=== PATIENT | female | born 1950 | race Caucasian/White ===

== ENCOUNTER 2017-02-07 05:30 | Inpatient (IN) | payer BC, OTHER, MEDICARE ==
[2017-01-24 11:14] VITALS: BMI 45.0
--- NOTE | 2017-01-24 11:51 | PAT Medication Instructions ---
Service Date Jan 24, 2017. Current Home Medication List Acetaminophen (Tylenol Arthritis Ext Rel), 1,300 MG PO Q8H PRN for Pain Acetaminophen (Tylenol), 1,000 MG PO PRN Albuterol Sulfate (Proventil Hfa), 2 PUFFS INH Q4H PRN for Wheezing Amlodipine (Norvasc), 2.5 MG PO QAM Amoxicillin (Amoxil), 2,000 MG PO UD Aspirin (Aspirin), 1 TAB PO HS Calcium Carbonate (Tums), 500 MG PO PRN Cholecalciferol (Vitamin D), 1,000 INTER.UNIT PO QAM Diphenoxylate/Atropine (Lomotil 2.5-0.025 mg), 1 TAB PO TID Diphenoxylate/Atropine (Lomotil), 1 TAB PO PRN Fluticasone Prop/Salmeterol (Advair Diskus 250/50 60 Dose), 1 PUFF INH HS Fluticasone Propionate (Nasal) (Flonase Allergy Relief), 2 SPRAYS NA QAM Ibuprofen (Ibuprofen), 1 TABS PO Q4H PRN for Pain Ibuprofen (Advil), 400 MG PO PRN Krill Oil (Krill Oil Bingham-3), 1 TABS PO HS Loratadine (Claritin), 10 MG PO QAM Metformin Hcl Er (Glucophage Er), 1,000 MG PO BID Montelukast Sodium (Singulair), 10 MG PO QAM Multivitamin (Multivitamin), 1 TAB PO QAM Omeprazole (Prilosec), 20 MG PO QAM Ranitidine (Zantac), 150 MG PO HS Timolol Maleate (Ophth) (Timoptic), 1 DROPS OP BID Valacyclovir Hcl (Valtrex), 1 GM PO TID PRN for PRN Valsartan (Diovan), 80 MG PO HS Vitamins C & E (Vitamin C), 1 TAB PO QAM [Oxybutynin], 5 MG PO BID Medication Instructions For Your Scheduled Surgery Amoxicillin (Amoxil), 2,000 MG PO UD (prior to dental procedures due to history of knee replacement) - Check with surgeon for instructions: Aspirin (Aspirin) 81MG, 1 TAB PO HS Ibuprofen (Ibuprofen), 1 TABS PO Q4H PRN for Pain Ibuprofen (Advil), 400 MG PO PRN - Hold the following medications starting 01/24/17: Krill Oil (Krill Oil Bingham-3), 1 TABS PO HS - Hold the following medications 48 hours prior to surgery: Metformin Hcl Er (Glucophage Er), 1,000 MG PO BID - Hold the following medications the morning of surgery: [Oxybutynin], 5 MG PO BID Vitamins C (Vitamin C), 1 TAB PO QAM Montelukast Sodium (Singulair), 10 MG PO QAM Multivitamin (Multivitamin), 1 TAB PO QAM Loratadine (Claritin), 10 MG PO QAM Diphenoxylate/Atropine (Lomotil 2.5-0.025 mg), 1 TAB PO TID Diphenoxylate/Atropine (Lomotil), 1 TAB PO PRN Calcium Carbonate (Tums), 500 MG PO PRN Cholecalciferol (Vitamin D), 1,000 INTER.UNIT PO QAM - Take the following medications the morning of surgery with a sip of water: Valacyclovir Hcl (Valtrex), 1 GM PO TID PRN for PRN Timolol Maleate (Ophth) (Timoptic), 1 DROPS OP BID Omeprazole (Prilosec), 20 MG PO QAM Fluticasone Propionate (Nasal) (Flonase Allergy Relief), 2 SPRAYS NA QAM Acetaminophen (Tylenol Arthritis Ext Rel), 1,300 MG PO Q8H PRN for Pain Acetaminophen (Tylenol), 1,000 MG PO PRN Amlodipine (Norvasc), 2.5 MG PO QAM Albuterol Sulfate (Proventil Hfa), 2 PUFFS INH Q4H PRN for Wheezing - Hold the following medications as scheduled the night before surgery: Valsartan (Diovan), 80 MG PO HS - Take the following medications as scheduled the night before surgery: [Oxybutynin], 5 MG PO BID Valacyclovir Hcl (Valtrex), 1 GM PO TID PRN for PRN Timolol Maleate (Ophth) (Timoptic), 1 DROPS OP BID Ranitidine (Zantac), 150 MG PO HS Fluticasone Prop/Salmeterol (Advair Diskus 250/50 60 Dose), 1 PUFF INH HS Diphenoxylate/Atropine (Lomotil 2.5-0.025 mg), 1 TAB PO TID Diphenoxylate/Atropine (Lomotil), 1 TAB PO PRN Calcium Carbonate (Tums), 500 MG PO PRN Acetaminophen (Tylenol Arthritis Ext Rel), 1,300 MG PO Q8H PRN for Pain Acetaminophen (Tylenol), 1,000 MG PO PRN Albuterol Sulfate (Proventil Hfa), 2 PUFFS INH Q4H PRN for Wheezing If you have any questions please call us at [phone] (Marietta Flores PA-C) or [phone] or [phone]
--- NOTE | 2017-01-24 12:30 | DIAGNOSTIC IMAGING REPORT ---
CHEST PREADMISSION(PA/LAT) CLINICAL HISTORY: PAT preoperative evaluation COMPARISON STUDY: No previous studies for comparison. FINDINGS: The bones soft tissues and hemidiaphragms are normal. The cardiomediastinal silhouette is normal. The lungs are clear. The pulmonary vasculature is normal. IMPRESSION: Negative chest. Electronically signed by: Freddy Hannah M.D. 01/24/2017 12:29 PM Dictated Date/Time: 01/24/2017 12:27 PM
[2017-01-24 12:43] LABS: BASO ABS # 0.08 K/uL (0-0.2); COMPLETE YES; EOS % 3.9 %; HEMATOCRIT 39.8 % (37-47); IG% 0.1 %; LYMPH % 21.3 %; LYMPH ABS # 1.68 K/uL (1.2-3.4); MEAN CELL VOLUME 92.6 fL (80-100); MEAN CORPUSCULAR HEMOGLOBIN 30.2 pg (25-34); MEAN CORPUSCULAR HGB CONC 32.7 g/dl (32-36); MEAN PLATELET VOLUME 8.7 fL (7.4-10.4); MONO % 6.4 %; NEUT % 67.3 %; PLATELET COUNT 272 K/uL (130-400); WHITE BLOOD COUNT 7.87 K/uL (4.8-10.8)
[2017-01-24 12:48] LABS: URINE APPEARANCE CLEAR (CLEAR); URINE BILIRUBIN NEG (NEG); URINE COLOR YELLOW; URINE EPITHELIAL CELL AUTO >30 /lpf (0-5); URINE NITRITE NEG (NEG); URINE SPECIFIC GRAVITY 1.021 (1.000-1.030); UROBILINOGEN NEG (NEG)
[2017-01-24 12:56] LABS: MANUAL MICROSCOPIC REQUIRED? NO; REVIEW REQ? NO
[2017-01-24 12:59] LABS: BUN/CREATININE RATIO 15.9 (10-20); CREATININE 0.88 mg/dl (0.60-1.20); POTASSIUM 4.3 mmol/L (3.5-5.1)
--- NOTE | 2017-02-03 09:16 | HISTORY & PHYSICAL EXAMINATION ---
DATE OF ADMISSION: 02/07/2017 HISTORY OF PRESENT ILLNESS: The patient presents to our office with a complaint of chronic back pain progressively worsening over the past 6 months. It also radiates down the right buttock, lateral thigh, and posterior calf to her ankle. Left leg is asymptomatic. Standing and walking reproduces her pain. Sitting and taking Tylenol alleviate it. Denies bowel or bladder dysfunction. PAST MEDICAL HISTORY: The patient's medical history is significant for asthma, arthritis, GERD, diabetes, hiatal hernia, hypertension, obesity. PAST SURGICAL HISTORY: Significant for exploratory lap, x3, D\T\C. MEDICATIONS: None listed. ALLERGIES: No known drug allergies. SOCIAL HISTORY: She is retired. She is . Denies alcohol. Denies tobacco. Denies drug use. FAMILY HISTORY: Significant for arthritis, diabetes and hypertension. REVIEW OF SYSTEMS: Significant for coughing, nasal congestion, difficulty walking, frequent urination, urge urinary incontinence, asthma, chills, fatigue. PHYSICAL EXAMINATION: VITAL SIGNS: 5 feet tall, 192 pounds. HEENT: Speech appropriate. CARDIOPULMONARY: No gross abnormalities. ABDOMEN: Soft, nontender. GENITOURINARY: Deferred. NEUROLOGIC: Cranial nerves II through XII grossly intact. MUSCULOSKELETAL: She ambulates with a very short stepped shuffled gait. She has difficulty toe and heel walking without assistance. Absent ankle clonus. Strength is intact to bilateral lower extremities. Negative tension signs. ASSESSMENT: Lumbar radiculopathy. Possible facet cyst on the right of L4-L5, spondylolisthesis L3-L4, L4-L5. PLAN: At this point in time, we have reviewed surgical intervention which would require lumbar decompression with instrumented fusion L3-L4, L4-L5. Risks, benefits, pros, cons, explained in detail. She would like to proceed with above-mentioned surgical planning.
[~2017-02-07] VITALS: Ht 152.4 cm; Wt 104.6 kg
[2017-02-07] VITALS (9 sets, daily range): BP systolic 131–164; BP diastolic 77–96; PULSE 65–84; TEMP 36.4–36.8; O2SAT 93–96; Ht 152.4 cm; Wt 104.6 kg
[~2017-02-07 05:30] MED LIST: ACET-1256 PO; ACET-1487 PO; ADVIN25/60 INH; ALBUAER INH; AMLO2.5T PO; AMOX500C3 PO; ASPI-461 PO; CALC500C3 PO; CHOL100010 PO; CLR10 PO; DIPH-416 PO; DPH/ PO; DVN80 PO; FLUT0.15; IBUP-1050 PO; IBUP1CAP9 PO; KRIL1CAP7 PO; METF500T5 PO; MONT1TAB3 PO; MULT-506 PO; OMEP20CA9 PO; OXYBUTYNIN PO; TIMO0.5S35 OP; VALA1TAB31 PO; VITACAP26 PO; ZNTT/150 PO
[2017-02-07] MEDS ORDERED: LACTATED RINGER'S 1000ML 1,000 ML IV SCH (06:00)
[2017-02-07] MEDS ORDERED: CEFAZOLIN 2000 MG/60 ML D5W IV SCH (06:00)
[2017-02-07] MEDS ORDERED: FENTANYL CITRATE INJ 50 MCG/1 ML 2 ML VIAL ONE ×3 (06:46→09:33)
[2017-02-07] MEDS ORDERED: MIDAZOLAM HCL 1 MG/ML 2ML VIAL ONE (06:46)
[2017-02-07] MEDS ORDERED: SODIUM CHLORIDE 0.9% PF 50 ML VIAL ONE (07:03)
[2017-02-07] MEDS ORDERED: BUPIVACAINE/EPINEPHRINE 0.5% MPF 1:200,000 30 ML VIAL ONE (07:03)
[2017-02-07] MEDS ORDERED: BACITRACIN 50000 UNIT VIAL ONE (07:04)
--- NOTE | 2017-02-07 07:23 | History & Physical Bridge Note ---
H&P Re-Evaluation Bridge Note: I have examined the patient, reviewed the History & Physical and in the interval since the performance of the History & Physical I have noted the following changes of clinical significance: No changes noted
[2017-02-07] MEDS ORDERED: FENTANYL CITRATE INJ 50 MCG/1 ML 2 ML VIAL IV PRN (08:00)
[2017-02-07] MEDS ORDERED: LABETALOL HCL IV 5 MG/ML 20ML IV PRN (08:00)
[2017-02-07] MEDS ORDERED: MEPERIDINE HCL 25 MG/ML CARP IV PRN (08:00)
[2017-02-07] MEDS ORDERED: ONDANSETRON INJ 2 MG/ML 2 ML VIAL IV PRN ×2 (08:00→09:30)
[2017-02-07] MEDS ORDERED: HYDROmorphone INJ 1 MG/ML SYR IV PRN (08:00)
[2017-02-07] MEDS ORDERED: ATROPINE SULFATE 0.1 MG/ML 5ML SYR IV PRN (08:00)
[2017-02-07] MEDS ORDERED: EpHEDrine SULFATE INJ 50 MG/ML AMP IV PRN (08:00)
[2017-02-07] MEDS ORDERED: HYDROmorphone INJ 2 MG/ML SYR/VIAL ONE ×2 (08:01→09:38)
[2017-02-07] MEDS ORDERED: PROPOFOL IV EMULSION 10 MG/ML 20 ML VIAL IV ONE (08:28)
[2017-02-07] MEDS ORDERED: DEXAMETHASONE SOD INJ 4 MG/ML VIAL ONE (08:28)
[2017-02-07] MEDS ORDERED: LIDOCAINE HCL 2% 2 ML VIAL (20MG/ML) ONE (08:28)
[2017-02-07] MEDS ORDERED: ROCURONIUM BROMIDE 10 MG/ML 5 ML VIAL ONE (08:28)
[2017-02-07] MEDS ORDERED: ONDANSETRON INJ 2 MG/ML 2 ML VIAL ONE ×2 (08:28→09:34)
[2017-02-07] MEDS ORDERED: FLOSEAL HEMOSTATIC MATRIX 10ML TOP ONE (09:24)
[2017-02-07] MEDS ORDERED: SODIUM CHLORIDE 0.9% 1000ML 1,000 ML IV SCH (09:26)
--- NOTE | 2017-02-07 09:26 | [facility] Post Operative Brief Note ---
Immediate Operative Summary Operative Date Feb 07, 2017. Pre-Operative Diagnosis Lumbar radiculopathy. Possible facet cyst on the right of L4-L5, spondylolisthesis L3-L4, L4-L5. Post-Operative Diagnosis Same as preop Procedure(s) Performed L3-L4, L4-L5 Posterior Lumbar Decompression Fusion with Pedicle Screw Fixation L3-L5; Interbody Fusion with Placement of Interbody Device at L4-L5, Bone Morphogenetic Protein, Application of Nichelle Allograft Surgeon Dr. Salmon Bindery Machine Setter/Set Up Operator Surgeon(s) Geo PoolAnn[place]), PAMartinaC Estimated Blood Loss 250ML Findings stenosis/spondy Specimens none per surgeon
[2017-02-07] MEDS ORDERED: BISACODYL 10 MG SUPP PR PRN (09:30)
[2017-02-07] MEDS ORDERED: SOD PHOSPHATE/SOD BIPHOSPHATE ENEMA 132 ML BTL PR PRN (09:30)
[2017-02-07] MEDS ORDERED: LORAZEPAM INJ 0.5 MG in SYRINGE 0 ML IV PRN (09:30)
[2017-02-07] MEDS ORDERED: LORAZEPAM 0.5 MG TAB PO PRN (09:30)
[2017-02-07] MEDS ORDERED: DO NOT ADMINISTER PNEUMOCOCCAL VACCINE PRN ×2 (09:30)
[2017-02-07] MEDS ORDERED: hydrOXYzine HCL 25 MG TAB PO PRN (09:30)
[2017-02-07] MEDS ORDERED: DIPHENOXYLATE/ATROPINE 2.5/0.025MG TAB PO PRN (09:30)
[2017-02-07] MEDS ORDERED: ACETAMINOPHEN IV 100 ML IV PRN (09:30)
[2017-02-07] MEDS ORDERED: MAGNESIUM HYDROXIDE SUSP 30 ML UDC PO PRN (09:30)
[2017-02-07] MEDS ORDERED: DO NOT ADMINISTER FLU VACCINE PRN ×3 (09:30)
[2017-02-07] MEDS ORDERED: METOCLOPRAMIDE HCL INJ 5 MG/ML 2 ML VIAL IV PRN (09:30)
[2017-02-07] MEDS ORDERED: ALBUTEROL HFA 8 GM INHALER INH PRN (09:30)
[2017-02-07] MEDS ORDERED: FAMOTIDINE 20 MG TAB PO PRN (09:30)
[2017-02-07] MEDS ORDERED: NALOXONE HCL 0.4 MG/1 ML VIAL/CARP IV PRN ×2 (09:30)
[2017-02-07] MEDS ORDERED: PROMETHAZINE HCL INJ 12.5 MG in SODIUM CHLORIDE 0.9% 50ML 50 ML IV PRN (09:30)
[2017-02-07] MEDS ORDERED: ALUMINUM/MAGNESIUM SUSP 30 ML UDC PO PRN (09:30)
[2017-02-07] MEDS ORDERED: GLYCOPYRROLATE INJ 0.2 MG/ML VIAL ONE (09:34)
[2017-02-07] MEDS ORDERED: NEOSTIGMINE METHYLSULFATE 1 MG/ML 10ML VIAL ONE (09:34)
[2017-02-07] MEDS ORDERED: KETOROLAC TROMETHAMINE 30 MG/ML VIAL ONE (09:34)
[2017-02-07] MEDS ORDERED: LABETALOL HCL IV 5 MG/ML 20ML IV ONE (09:39)
[2017-02-07] MEDS ORDERED: HYDROmorphone HCL 0.5MG/ML 50 ML CASSETTE ONE (10:03)
--- NOTE | 2017-02-07 10:03 | DIAGNOSTIC IMAGING REPORT ---
LUMBAR SPINE, INTRAOPERATIVE FLUOROSCOPY HISTORY: L3-L5 decompression and fusion. FLUOROSCOPY TIME: 13 seconds. FINDINGS: Intraoperative fluoroscopy was provided for the lumbar spine. 2 fluoroscopic spot images were obtained. Posterior decompression fusion from L3 through L5 with pedicle screws and rods. The hardware is intact. IMPRESSION: Fluoroscopy provided for a L3-L5 posterior decompression and fusion. Electronically signed by: Jose Cheema M.D. 02/07/2017 10:01 AM Dictated Date/Time: 02/07/2017 10:01 AM
--- NOTE | 2017-02-07 10:40 | Anesthesiology Progress Note ---
Anesthesia Post Op Note Date & Time Feb 07, 2017 at 10:39 Vital Signs Pain Intensity: 0 Vital Signs Past 12 Hours Date Time Temp Pulse Resp B/P Pulse Ox O2 Delivery O2 Flow Rate FiO2 02/07/17 10:30 36.5 71 16 149/81 95 Nasal Cannula 4 02/07/17 10:20 76 14 152/87 96 Nasal Cannula 4 02/07/17 10:10 68 12 169/87 100 Mask 10 02/07/17 10:00 69 15 162/84 100 Mask 10 02/07/17 09:50 75 12 147/85 99 Mask 10 02/07/17 09:42 36.4 68 24 126/60 98 Mask 10 02/07/17 06:25 36.8 65 20 164/83 95 Room Air Notes Mental Status: alert / awake / arousable, participated in evaluation Pt Amnestic to Procedure: Yes Nausea / Vomiting: adequately controlled Pain: adequately controlled Airway Patency, RR, SpO2: stable & adequate BP & HR: stable & adequate Hydration State: stable & adequate Anesthetic Complications: no major complications apparent
--- NOTE | 2017-02-07 11:05 | OPERATIVE REPORT ---
DATE OF OPERATION: 02/07/2017 PREOPERATIVE DIAGNOSES: Spinal stenosis and spondylolisthesis. POSTOPERATIVE DIAGNOSES: Same. PROCEDURES PERFORMED: 1. Lumbar decompression, medial facetectomy, and foraminotomy, L2-L3, L3-L4, and L4-L5. 2. Posterior spinal fusion, L3-L4 and L4-L5. 3. Placement of posterior segmental instrumentation using Orthros rods and screws, L3-L4 and L4-L5. 4. Interbody fusion, L4-L5. 5. Placement of PEEK cage 12 x 26 at L4-L5. 6. Placement of locally harvested morcellized autograft in the posterior gutters. 7. Placement of Infuse collagen sponge combined with Mastergraft in the posterior lateral gutters and Nichelle bone graft in the interbody space. SURGEON: Dr. Jeovanny Salmon. CASKET INSPECTOR: Irena Braden PA-C. Due to the complex nature of the procedure, the entire surgery was performed with the janitorial assistant of Irena Braden PA-C. The home care assistant, under direct supervision, was involved in the actual performance of all aspects of the surgical procedure including hemostasis, tissue retraction and incision, instrument management, patient positioning, and wound closure. ANESTHESIA: General. DISPOSITION: The patient awakened and taken to PACU in stable condition. HISTORY OF PATIENT'S PROBLEMS: A 67-year-old female that presents with above-mentioned diagnoses. After failing an extensive course of nonoperative care, she elected to undergo the above-mentioned procedures. Risks, benefits, pros, cons, and alternatives were outlined in detail preoperatively. DESCRIPTION OF PROCEDURE: The patient was met with preoperatively, the case discussed and all questions were addressed. At that point, the patient was taken back to operative suite and after undergoing successful general intubation by the department of anesthesia, she was placed in prone position on Jarod table atop Jose frame. All bony prominences were well padded and the eyes were inspected to ensure there was no external pressure placed upon them. At this point, lumbar spine was prepped and draped in normal sterile fashion. Sharp dissection with the assistance of Bovie cautery performed down to and exposing the lamina and transverse processes of L3, L4, and L5 bilaterally. From a caudal to cephalad fashion, complete laminectomy of L4, L3 and partial laminectomy of L2 was performed addressing severe lateral recess and foraminal stenosis. After complete decompression, pedicle screws were then placed in L3, L4, and L5 bilaterally with assistance of fluoroscopy and appropriate size mervin provisionally placed. Through a transforaminal approach on the right, a complete diskectomy of L4-L5 was performed, endplates curetted to subcortical bleeding bone and a 12 x 26 mm PEEK cage filled with Nichelle bone grafting tapped into position. The rods were then compressed, locked into final position bilaterally and transverse processes of L3, L4, and L5 burred to subcortical bleeding bone. Infuse collagen sponge combined with Mastergraft and locally harvested morselized autograft was placed in the posterior gutters. A 7 flat DERIK drain was inserted. Incision was closed with 1-0 Vicryl in the fascia, 2-0 Vicryl subcutaneously, and 4-0 Monocryl for final skin closure. Steri-Strips and sterile dressing placed. The patient was awakened and taken to PACU in stable condition. I attest to the content of the Intraoperative Record and any orders documented therein. Any exceptio ns are noted below.
[2017-02-07] MEDS ORDERED: PHARMACY GLYCEMIC MGMT CONSULT PRN (11:11)
[2017-02-07] MEDS: SODIUM CHLORIDE 0.9% 1000ML 1,000 ML IV SCH ×3 (11:25→22:35)
[2017-02-07] MEDS ORDERED: GLUCOSE 40% GEL 15 GM TUBE PO PRN (11:45)
[2017-02-07] MEDS ORDERED: DEXTROSE 50% 50 ML SYR IV PRN (11:45)
[2017-02-07] MEDS ORDERED: GLUCOSE 10 TABS/TUBE PO PRN (11:45)
[2017-02-07] MEDS ORDERED: GLUCAGON FOR INJ 1 MG VIAL SQ PRN (11:45)
--- NOTE | 2017-02-07 12:20 | Discharge Instructions ---
Discharge Instructions Date of Service Feb 07, 2017. Admission Reason for Admission: Lumbar Spinal Stenosis Discharge Discharge Diagnosis / Problem: post op Discharge Goals Goal(s): Decrease discomfort, Improve function, Increase independence Activity Recommendations Activity Limitations: per Instructions/Follow-up section . Current Hospital Diet Patient's current hospital diet: Diabetes Type 2 Diet Discharge Diet Recommended Diet: Regular Diet Procedures Procedures Performed: L3-L4, L4-L5 Posterior Lumbar Decompression Fusion with Pedicle Screw Fixation L3-L5; Interbody Fusion with Placement of Interbody Device at L4-L5, Bone Morphogenetic Protein, Application of Nichelle Allograft Pending Studies Studies pending at discharge: no Medical Emergencies . Who to Call and When: Medical Emergencies: If at any time you feel your situation is an emergency, please call 911 immediately. . Non-Emergent Contact Non-Emergency issues call your: Primary Care Provider, Surgeon . "Provider Documentation" section prepared by Irena Jamison. VTE Core Measure Inpt VTE Proph given/why not?: [facility] [place] Drug Monitoring Program Search Results: patient reviewed within database, no issues identified
--- NOTE | 2017-02-07 12:32 | Pharmacy Progress Note ---
Glycemic Control Intl Consult Date of Service Feb 07, 2017. Scope Glycemic Pharmacist consulted by Dr Salmon on 02/07/17 for glycemic control and to write orders per [facility] inpatient glycemic control protocol Objective Weight (Kilograms): 104.600 Accuchecks BSG (last 24hrs): Test 02/07/17 06:15 02/07/17 09:46 02/07/17 11:49 Bedside Glucose 141 mg/dl (70-90) 150 mg/dl (70-90) 182 mg/dl (70-90) Recent Pertinent Medications Outpatient Anti-diabetic Regimen: * A1c - unknown * Metformin ER 1000 mg PO BID Risk Factors for Insulin Resistance: * High dose steroids: dexamethasone 12 mg IV intra-op, then 6 mg IV q8h x 3 doses post-op * Recent Surgery: POD #0 lumbar decompression surgery * Diet: T2DM Assessment & Plan ASSESSMENT: * 67 yo T2DM female on metformin as an outpatient. She is POD #0 s/p lumbar laminectomy. * Outpatient control of diabetes unknown. Ordered A1c for 02/08. * ADA & AACE recommend a goal blood sugar range 140-180 mg/dl for the majority of critically ill & non-critically ill patients. However, more stringent targets may be selected in individual cases. Will utilize more stringent goal of 110-140 mg/dl based on patient age & comorbidities. Additionally, tighter glycemic control is warranted to facilitate wound/infection healing. * Pt is maintained on oral antidiabetic agents as an outpatient * Oral agents are not recommended for inpatient use d/t drug interactions, changing PO intake, and difficulty titrating for acute hyper/hypoglycemia. Oral agents are inadequate to control steroid induced hyperglycemia. ADA recommends re-initiating outpatient oral agents 1-2 days prior to discharge if/when appropriate if they were held on admission. * Will hold oral agents for admission and utilize SQ basal bolus insulin regimen which is the recommended regimen for inpatient glycemic control. * Will initiate weight based insulin dosing for insulin dianne patient and titrate based on BSG trends. PLAN FOR INPATIENT GLYCEMIC CONTROL: * Holding metformin due to recent surgery * Basal insulin with LANTUS SQ BID * For BSG 120 mg/dL or less - 10 units * For BSG 121 - 180 mg/dL - 18 units * For BSG greater than 180 mg/dL - 22 units * Lantus dose will require adjustment on 02/08 after am dose * NOVOLOG insulin per scale ACHS * Goal Range: Low 110 mg/dL - High 140 mg/dL * Correction Factor: 18 mg/dL/unit * Nutritional / Prandial insulin per carb ratio of 1 unit per 6 grams CHO consumed * Add BSG check at 00 and 04 to avoid hyperglycemia with high dose steroids * Please note that the plan above was derived based on current level of insulin resistance and hospital stress. These recommendations are appropriate for inpatient admission only. Plan of care upon discharge will need to be reassessed to avoid potential outpatient hypo/hyperglycemia. Thank you.
[2017-02-07] MEDS: INSULIN ASPART 100 UNITS/ML 3 ML PEN SC SCH ×3 (12:48→21:08)
[2017-02-07] MEDS ORDERED: RXC5 PO (13:55)
--- NOTE | 2017-02-07 13:56 | Discharge Instructions ---
Discharge Instructions Date of Service Feb 07, 2017. Admission Reason for Admission: Lumbar Spinal Stenosis Discharge Discharge Diagnosis / Problem: stenosis Discharge Goals Goal(s): Improve function Activity Recommendations Activity Limitations: per Instructions/Follow-up section . Instructions / Follow-Up Instructions / Follow-Up ACTIVITY RECOMMENDATIONS: SELF CARE INSTRUCTIONS AFTER THORACIC/LUMBAR FUSIONS 1. You may walk to your tolerance. It is good exercise for your legs and back. Expect some back and intermittent leg aches and pains. 2. You may perform "counter-top" level activities (make a sandwich, divya with a project, etc.). 3. No bending or lifting of more than 10 pounds or back twisting of any nature (roll like a log when turning in bed). 4. You may ride in a car for 20-30 minutes at a time. No driving until after your first visit with your doctor. 5. Frequent changes of position and restricting sitting to 30 minutes at a time will help limit the amount of back spasms and stiffness you may experience. 6. You may discontinue the use of ambulatory aids (cane, crutches, etc.) once your strength and confidence allow. 7. You may loop machine operator the shower and let water strike your incision when you arrive home at least once daily. Do not take a tub bath, sit in a hot tub or go into a swimming pool until after your first recheck in the office. SPECIAL CARE INSTRUCTIONS: VERY IMPORTANT TO READ AND REVIEW A. Your surgical incision has been closed with a cosmetic suture under the skin that will dissolve in about 6 weeks. In 14 days, you can use a pair of clean scissors and cut the suture that is left outside of the skin at the ends of your incision. 1. The small skin tapes can be removed 7 days after surgery if they have not fallen off by that point. 2. You may keep the wound open to air as much as possible to promote healing after post-op day number 5 unless told otherwise by your doctor. 3. If you think the wound looks like it is becoming infected (redness or worsening drainage) and/or you are experiencing fever, chill or worsening back pain and muscle spasms, contact the office so that we may evaluate you as soon as possible. B. Complications are uncommon, but please contact us if you have any signs or symptoms of: 1. wound infection (fever higher than 102.5 degrees F, redness, separation of wound, drainage, or increasing pain from the incision) 2. blood clots in legs (pain, swelling, redness and warmth in legs) 3. urinary tract infection (fever higher than 102.5 degrees F, burning upon urination or increased frequency of urination) 4. nerve problems (inability to walk on your toes or heels, numbness, loss of bowel or bladder control) 5. any other symptoms that concern you C. Please call the office at if you have any concerns or questions about your operation or recovery. D. No smoking! Smoking drastically decreases the chance of a solid fusion. E. Do not take any anti-inflammatory medications (Indocin, Advil, Motrin, Aspirin, Naprosyn, etc.) as these may inhibit the chance of a solid fusion. Tylenol is okay to take for pain. MANAGING PAIN AFTER SPINAL SURGERY 1. Narcotic medication is intended for short-term use and will be provided for surgical pain. Surgical pain usually lasts for a period of 4-6 weeks. Narcotic medication includes Percocet, Vicodin, Darvocet, Tylenol #3 or Lortab. 2. Longer-term pain is more appropriately treated with non-narcotic medication such as Tylenol ES. 3. Muscle spasm is not appropriately treated with narcotics. Muscle relaxers such as Soma, Flexeril or Skelaxin can be used along with Tylenol ES. 4. Remember that we all live with some "aches and pains". This is not unusual or uncommon after an injury or as we get older. a. Back pain is expected and may include muscle spasms for 4 to 6 weeks after surgery. The pain should gradually improve. If the pain worsens for no apparent reason, please contact the office. b. Intermittent leg pain may also be experienced and should not be concerned about unless it worsens for no apparent reason. If so, please contact the office. 5. We will provide appropriate medication within the normal guidelines of their prescribed use. We will also be very cautious and aware of potential abuse and extended duration of patients' medication needs. a. Pain medications are for your comfort and to assist with sleep and rest so that the tissue can heal. They are not provided in order to return to normal activity and should not be used through the day. To do so or worsening pain at night can result from ongoing tissue damage and development of tolerance to the prescribed medicine. 6. Please allow 2-3 days to process refills. Prescriptions will not be mailed but must be picked up at the office. FOLLOW UP VISIT: Keep your scheduled follow-up appointment. Any questions, please call the office at . Current Hospital Diet Patient's current hospital diet: Diabetes Type 2 Diet Discharge Diet Recommended Diet: Regular Diet Procedures Procedures Performed: L3-L4, L4-L5 Posterior Lumbar Decompression Fusion with Pedicle Screw Fixation L3-L5; Interbody Fusion with Placement of Interbody Device at L4-L5, Bone Morphogenetic Protein, Application of Nichelle Allograft Pending Studies Studies pending at discharge: no Medical Emergencies . Who to Call and When: Medical Emergencies: If at any time you feel your situation is an emergency, please call 911 immediately. . Non-Emergent Contact Non-Emergency issues call your: Primary Care Provider . "Provider Documentation" section prepared by Jeovanny Salmon. VTE Core Measure Inpt VTE Proph given/why not?: Davidson Douglas, SCD's
[2017-02-07] MEDS: HYDROmorphone HCL 0.5MG/ML 50 ML CASSETTE IV PRN ×2 (14:52→23:09)
[2017-02-07] MEDS: CEFAZOLIN IV 2,000 MG in DEXTROSE 5% 50ML 50 ML IV SCH ×2 (16:00→23:57)
[2017-02-07] MEDS: DEXAMETHASONE INJ 6 MG in SYRINGE 0 ML IV SCH (18:02)
[2017-02-07] MEDS: INSULIN GLARGINE SOLOSTAR 100 UNITS/ML 3 ML PEN SC SCH (18:24)
[2017-02-07] MEDS: RANITIDINE HCL 150 MG TAB PO SCH (21:01)
[2017-02-07] MEDS: VALSARTAN 80 MG TAB PO SCH (21:01)
[2017-02-07] MEDS: DOCUSATE SODIUM/SENNA 50/8.6MG TAB PO SCH (21:01)
[2017-02-07] MEDS: ASPIRIN 81 MG ECTAB PO SCH (21:02)
[2017-02-07] MEDS: FLUTICASONE/SALMETEROL 250/50 (ADVAIR) 14 PUFF/1 INHALER INH SCH (21:04)
[2017-02-07] MEDS: TIMOLOL MALEATE 0.5% OP SOLN 5 ML BTL OP SCH (21:07)
[2017-02-08] MEDS: INSULIN ASPART 100 UNITS/ML 3 ML PEN SC SCH ×6 (00:01→21:08)
[2017-02-08] MEDS: DEXAMETHASONE INJ 6 MG in SYRINGE 0 ML IV SCH ×2 (01:39→09:31)
[2017-02-08 04:00] VITALS: BP 137/86; PULSE 67; TEMP 36.9; O2SAT 95
[2017-02-08] MEDS: SODIUM CHLORIDE 0.9% 1000ML 1,000 ML IV SCH (05:26)
[2017-02-08] MEDS ORDERED: NURSING VERBAL MED ORDER ONE (06:00)
[2017-02-08] MEDS ORDERED: HYDROmorphone INJ 0.5 MG/0.5 ML SYR IV PRN (06:00)
[2017-02-08] MEDS ORDERED: HYDROmorphone INJ 1 MG/ML SYR IV PRN (06:00)
[2017-02-08] MEDS ORDERED: DC PCA SCH (06:00)
[2017-02-08 06:20] LABS: COMPLETE YES; IG% 0.2 %; LYMPH % 4.8 %; MEAN CELL VOLUME 91.7 fL (80-100); MEAN CORPUSCULAR HEMOGLOBIN 30.4 pg (25-34); MEAN CORPUSCULAR HGB CONC 33.1 g/dl (32-36); MEAN PLATELET VOLUME 8.6 fL (7.4-10.4); MONO % 3.5 %; NEUT % 91.5 %; PLATELET COUNT 267 K/uL (130-400); RED BLOOD COUNT 3.49 M/uL (4.2-5.4); WHITE BLOOD COUNT 14.73 K/uL (4.8-10.8)
[2017-02-08 06:44] LABS: CALCIUM 8.7 mg/dl (8.5-10.1); CREATININE 0.92 mg/dl (0.60-1.20); POTASSIUM 4.2 mmol/L (3.5-5.1)
[2017-02-08 07:20] VITALS: BP 123/79; PULSE 62; TEMP 36.7; O2SAT 93
[2017-02-08] MEDS: ACETAMINOPHEN 500 MG TAB PO PRN ×2 (07:51→21:12)
[2017-02-08 07:58] LABS: ESTIMATED AVERAGE GLUCOSE 123 mg/dl; HA1C FLAG Normal (Normal)
--- NOTE | 2017-02-08 08:12 | Anesthesiology Progress Note ---
Anesthesia Post Op Note Date & Time Feb 08, 2017 at 08:09 Vital Signs Pain Intensity: 6.0 Vital Signs Past 12 Hours Date Time Temp Pulse Resp B/P Pulse Ox O2 Delivery O2 Flow Rate FiO2 02/08/17 07:20 36.7 62 16 123/79 93 Room Air 02/08/17 04:00 36.9 67 16 137/86 95 Room Air 02/08/17 00:06 Nasal Cannula 2.0 02/07/17 23:07 36.6 75 16 157/96 93 Nasal Cannula 2.0 Notes Mental Status: alert / awake / arousable, participated in evaluation Pt Amnestic to Procedure: Yes Nausea / Vomiting: adequately controlled Pain: adequately controlled Airway Patency, RR, SpO2: stable & adequate BP & HR: stable & adequate Hydration State: stable & adequate Anesthetic Complications: no major complications apparent period of confusion throughout the night. resolved this morning.
--- NOTE | 2017-02-08 08:21 | Pharmacy Progress Note ---
Glycemic Control: Progress Nt Date of Service Feb 08, 2017. Scope Glycemic Pharmacist consulted by Dr Salmon on 02/07/17 for glycemic control and to write orders per [facility] inpatient glycemic control protocol. Objective Accuchecks BSG (last 24hrs): Test 02/07/17 09:46 02/07/17 11:49 02/07/17 17:27 02/07/17 21:05 Bedside Glucose 150 mg/dl (70-90) 182 mg/dl (70-90) 168 mg/dl (70-90) 149 mg/dl (70-90) Test 02/07/17 23:56 02/08/17 04:00 02/08/17 05:30 Bedside Glucose 166 mg/dl (70-90) 161 mg/dl (70-90) Random Glucose 168 mg/dl (70-99) Laboratory Data (last 24hrs) Test 02/08/17 05:30 Anion Gap 9.0 mmol/L BUN/Creatinine Ratio 14.0 Blood Urea Nitrogen 13 mg/dl Creatinine 0.92 mg/dl Hemoglobin A1c 5.9 % Potassium Level 4.2 mmol/L Sodium Level 142 mmol/L White Blood Count 14.73 K/uL Red Blood Count 3.49 M/uL Hemoglobin 10.6 g/dL Hematocrit 32.0 % Mean Corpuscular Volume 91.7 fL Mean Corpuscular Hemoglobin 30.4 pg Mean Corpuscular Hemoglobin Concent 33.1 g/dl Platelet Count 267 K/uL Mean Platelet Volume 8.6 fL Neutrophils (%) (Auto) 91.5 % Lymphocytes (%) (Auto) 4.8 % Monocytes (%) (Auto) 3.5 % Eosinophils (%) (Auto) 0.0 % Basophils (%) (Auto) 0.0 % Neutrophils # (Auto) 13.49 K/uL Lymphocytes # (Auto) 0.70 K/uL Monocytes # (Auto) 0.51 K/uL Eosinophils # (Auto) 0.00 K/uL Basophils # (Auto) 0.00 K/uL HbA1c: Test 02/08/17 05:30 Hemoglobin A1c 5.9 % (4.5-5.6) H Recent Pertinent Medications Outpatient Anti-diabetic Regimen: * A1c - unknown * Metformin ER 1000 mg PO BID Risk Factors for Insulin Resistance: * High dose steroids: dexamethasone 12 mg IV intra-op, then 6 mg IV q8h x 3 doses post-op (last dose 02/08 @ 10) * Recent Surgery: POD #1 lumbar decompression surgery * Diet: T2DM Assessment & Plan ASSESSMENT: * 67 yo T2DM female POD #1 s/p lumbar laminectomy. * Pt is maintained on metformin as an outpatient. Metformin was held on 02/07 due to changing PO intake with recent surgery. This can resumed tomorrow when lantus effects are diminished. Patient is tolerating a diet and IV fluids have been discontinued. * Patient had good glycemic control overnight with basal and bolus insulin regimen. The patient should not require further basal insulin after am dose today due to discontinuation of IV steroids. Correctional and prandial insulin regimen will be * ADA & AACE recommend a goal blood sugar range 140-180 mg/dl for the majority of critically ill & non-critically ill patients. However, more stringent targets may be selected in individual cases. Will utilize more stringent goal of 110-140 mg/dl based on patient age & comorbidities. Additionally, tighter glycemic control is warranted to facilitate wound/infection healing PLAN FOR INPATIENT GLYCEMIC CONTROL: * Resume Metformin ER 1,000 mg PO BID (home dose) on 02/09 am * Discontinue basal insulin with Lantus * NOVOLOG insulin per scale ACHS * Goal Range: Low 110 mg/dL - High 140 mg/dL * Loosen correction Factor: 30 mg/dL/unit * Loosen nutritional / Prandial insulin per carb ratio of 1 unit per 10 grams CHO consumed LOOKING AHEAD FOR DISCHARGE: * Continue home dose of metformin ER 1,000 mg PO BID for patient with good outpatient glycemic control as evidenced by A1c of 5.9 % (drawn 02/08). * Please note that the plan above was derived based on current level of insulin resistance and hospital stress. These recommendations are appropriate for inpatient admission only. Plan of care upon discharge will need to be reassessed to avoid potential outpatient hypo/hyperglycemia. Thank you.
--- NOTE | 2017-02-08 08:44 | PROGRESS NOTE ---
DATE: 02/08/2017 DATE: 02/08/2017. SUBJECTIVE: Postop day 1. Back pain controlled. Leg pain improved. Vital signs stable. T-max 36.9. DERIK drained 70 mL. Hematocrit this a.m. is 32.0. OBJECTIVE: On exam she has good strength to testing, appears comfortable. ASSESSMENT: Status post lumbar decompression and fusion. PLAN: At this time, will initiate physical therapy, advance his bowel regimen and hopefully discharge home in the next few days.
[2017-02-08] MEDS: TIMOLOL MALEATE 0.5% OP SOLN 5 ML BTL OP SCH ×2 (09:28→21:05)
[2017-02-08] MEDS: MONTELUKAST SOD 10 MG TAB PO SCH (09:29)
[2017-02-08] MEDS: AMLODIPINE BESYLATE 5 MG TAB PO SCH (09:29)
[2017-02-08] MEDS: FLUTICASONE PROPIONATE NA SPR 16 GM BTL SCH (09:29)
[2017-02-08] MEDS: LORATADINE 10 MG TAB PO SCH (09:30)
[2017-02-08] MEDS: PANTOprazole SOD 40 MG TAB PO SCH (09:30)
[2017-02-08] MEDS: INSULIN GLARGINE SOLOSTAR 100 UNITS/ML 3 ML PEN SC SCH (09:41)
[2017-02-08 11:43] VITALS: BP 142/69; PULSE 63; TEMP 36.6; O2SAT 94
[2017-02-08] MEDS: OXYCODONE HCL IR 5 MG TAB (IMMEDIATE RELEASE) PO PRN (13:35)
[2017-02-08 15:22] VITALS: BP 150/83; PULSE 95; TEMP 36.6; O2SAT 95
[2017-02-08] MEDS: FLUTICASONE/SALMETEROL 250/50 (ADVAIR) 14 PUFF/1 INHALER INH SCH (21:04)
[2017-02-08] MEDS: VALSARTAN 80 MG TAB PO SCH (21:05)
[2017-02-08] MEDS: DOCUSATE SODIUM/SENNA 50/8.6MG TAB PO SCH (21:05)
[2017-02-08] MEDS: RANITIDINE HCL 150 MG TAB PO SCH (21:05)
[2017-02-08] MEDS: ASPIRIN 81 MG ECTAB PO SCH (21:05)
[2017-02-08 23:37] VITALS: BP 158/90; PULSE 65; TEMP 36.6; O2SAT 91
[2017-02-09] MEDS: POLYETHYLENE (MIRALAX) 17 GM PACK PO SCH ×4 (06:02→23:36)
[2017-02-09 07:22] VITALS: BP 149/76; PULSE 59; TEMP 36.6; O2SAT 96
[2017-02-09] MEDS: INSULIN ASPART 100 UNITS/ML 3 ML PEN SC SCH ×4 (08:00→20:53)
[2017-02-09] MEDS: FLUTICASONE PROPIONATE NA SPR 16 GM BTL SCH (08:54)
[2017-02-09] MEDS: AMLODIPINE BESYLATE 5 MG TAB PO SCH (08:56)
[2017-02-09] MEDS: METFORMIN HCL 500 MG TABCR PO SCH ×2 (08:56→19:14)
[2017-02-09] MEDS: TIMOLOL MALEATE 0.5% OP SOLN 5 ML BTL OP SCH ×2 (08:56→20:48)
[2017-02-09] MEDS: MONTELUKAST SOD 10 MG TAB PO SCH (08:58)
[2017-02-09] MEDS: PANTOprazole SOD 40 MG TAB PO SCH (08:58)
[2017-02-09] MEDS: LORATADINE 10 MG TAB PO SCH (08:58)
[2017-02-09] MEDS: ACETAMINOPHEN 500 MG TAB PO PRN ×2 (08:59→17:05)
[2017-02-09] MEDS: OXYCODONE HCL IR 5 MG TAB (IMMEDIATE RELEASE) PO PRN ×4 (11:41→23:36)
--- NOTE | 2017-02-09 14:28 | PROGRESS NOTE ---
DATE: 02/09/2017 Postop day 2. Back pain controlled. Leg pain markedly improved. Vital signs stable. T-max 36.6. DERIK drained 30 mL. Hematocrit this a.m. is 32.0. On exam, she is in chair at bedside. Has good strength to testing. Appears comfortable. ASSESSMENT: Status post lumbar decompression and fusion. PLAN: At this time, we will continue with physical therapy today, ambulation throughout the afternoon. Expected discharge home tomorrow.
[2017-02-09 15:16] VITALS: BP 136/78; PULSE 64; TEMP 36.5; O2SAT 94
[2017-02-09] MEDS: FLUTICASONE/SALMETEROL 250/50 (ADVAIR) 14 PUFF/1 INHALER INH SCH (20:48)
[2017-02-09] MEDS: VALSARTAN 80 MG TAB PO SCH (20:52)
[2017-02-09] MEDS: DOCUSATE SODIUM/SENNA 50/8.6MG TAB PO SCH (20:52)
[2017-02-09] MEDS: ASPIRIN 81 MG ECTAB PO SCH (20:52)
[2017-02-09] MEDS: RANITIDINE HCL 150 MG TAB PO SCH (20:52)
[2017-02-09 22:45] VITALS: BP 134/83; PULSE 66; TEMP 36.6; O2SAT 94
[2017-02-10] MEDS: POLYETHYLENE (MIRALAX) 17 GM PACK PO SCH ×2 (06:12→12:00)
[2017-02-10] MEDS: ACETAMINOPHEN 500 MG TAB PO PRN (06:13)
[2017-02-10] MEDS: OXYCODONE HCL IR 5 MG TAB (IMMEDIATE RELEASE) PO PRN (06:14)
[2017-02-10 07:32] VITALS: BP 134/82; PULSE 66; TEMP 36.7; O2SAT 93
[2017-02-10] MEDS: INSULIN ASPART 100 UNITS/ML 3 ML PEN SC SCH (08:00)
[2017-02-10 08:15] VITALS: O2SAT 93
[2017-02-10] MEDS: FLUTICASONE PROPIONATE NA SPR 16 GM BTL SCH (08:24)
[2017-02-10] MEDS: METFORMIN HCL 500 MG TABCR PO SCH (08:24)
[2017-02-10] MEDS: TIMOLOL MALEATE 0.5% OP SOLN 5 ML BTL OP SCH (08:25)
[2017-02-10] MEDS: LORATADINE 10 MG TAB PO SCH (08:25)
[2017-02-10] MEDS: AMLODIPINE BESYLATE 5 MG TAB PO SCH (08:25)
[2017-02-10] MEDS: MONTELUKAST SOD 10 MG TAB PO SCH (08:26)
[2017-02-10] MEDS: PANTOprazole SOD 40 MG TAB PO SCH (08:26)
[2017-02-10 10:57] VITALS: BP 134/82; PULSE 66; TEMP 36.7; O2SAT 93
--- NOTE | 2017-02-10 12:10 | Pharmacy Progress Note ---
Glycemic: Assessment & Plan Date of Service Feb 10, 2017. Assessment & Plan Recent Pertinent Medications Outpatient Anti-diabetic Regimen: * A1c - 5.9% 02/08/17 * Metformin ER 1000 mg PO BID Risk Factors for Insulin Resistance: * Steroids: completed 02/08 * Recent Surgery: POD #3 lumbar decompression surgery * Diet: T2DM Assessment & Plan ASSESSMENT: * 67 yo T2DM female POD #3 s/p lumbar laminectomy. 02/08/17 * Pt is maintained on metformin as an outpatient. Metformin was held on 02/07 due to changing PO intake with recent surgery. This can resumed tomorrow when Lantus effects are diminished. Patient is tolerating a diet and IV fluids have been discontinued. * Patient had good glycemic control overnight with basal and bolus insulin regimen. The patient should not require further basal insulin after am dose today due to discontinuation of IV steroids. Correctional and prandial insulin regimen will be 02/10/17 * BSGs all at or below goal range today * Decrease Accu-checks to BID * Metformin resumed yesterday * continue now and at discharge * ADA & AACE recommend a goal blood sugar range 140-180 mg/dl for the majority of critically ill & non-critically ill patients. However, more stringent targets may be selected in individual cases. Will utilize more stringent goal of 110-140 mg/dl based on patient age & comorbidities. Additionally, tighter glycemic control is warranted to facilitate wound/infection healing PLAN FOR INPATIENT GLYCEMIC CONTROL: * Resume Metformin ER 1,000 mg PO BID with meals * Forgo basal insulin * NOVOLOG insulin per scale BID with meals * Goal Range: Low 110 mg/dL - High 140 mg/dL * Loosen correction Factor: 30 mg/dL/unit * Forgo carb ratio at this time LOOKING AHEAD FOR DISCHARGE: * Continue home dose of metformin ER 1,000 mg PO BID for patient with good outpatient glycemic control as evidenced by A1c of 5.9 % (drawn 02/08). * Please note that the plan above was derived based on current level of insulin resistance and hospital stress. These recommendations are appropriate for inpatient admission only. Plan of care upon discharge will need to be reassessed to avoid potential outpatient hypo/hyperglycemia. Thank you.
--- NOTE | 2017-02-10 13:22 | DISCHARGE SUMMARY ---
DATE OF DISCHARGE: 02/10/2017. PREOPERATIVE DIAGNOSIS: Spinal stenosis. HOSPITAL COURSE FOLLOWS: On 02/07/2017 the patient underwent multilevel lumbar decompression and fusion, tolerated this well and taken to the orthopedic floor postoperatively. Postop day #1, she was up and ambulatory. Postop day #2, she continued to progress well. DERIK drain decreased appropriately. Subsequently on postop day #3, she was discharged home. Discharge orders and instructions can be found on the chart for further review.
[2017-02-10] MEDS ORDERED: INSULIN ASPART 100 UNITS/ML 3 ML PEN SC SCH (17:45)
== END 2017-02-10 13:25 | disposition home or self-care (01) | DRG 460 ==
LOC: ENRESERVDT → ENRESERVTM → C.ACU 05:30 → C.3E 07:00
PROVIDERS: ADMIT Orthopaedic Surgery Orthopaedic Surgery of the Spine; ATTEND Orthopaedic Surgery Orthopaedic Surgery of the Spine
PROC: 0ST20ZZ Resection of Lumbar Vertebral Disc, Open Approach (ICD-10-PCS; principal; 2017-02-07 07:45)
PROC: 0SG00AJ Fusion of Lumbar Vertebral Joint with Interbody Fusion Device, Posterior Approach, Anterior Column, Open Approach (ICD-10-PCS; principal; 2017-02-07 07:45)
PROC: 0SG1071 Fusion of 2 or more Lumbar Vertebral Joints with Autologous Tissue Substitute, Posterior Approach, Posterior Column, Open Approach (ICD-10-PCS; principal; 2017-02-07 07:45)
DX: M48.06 Spinal stenosis, lumbar region (principal); Z68.42 Body mass index [BMI] 45.0-49.9, adult; M43.16 Spondylolisthesis, lumbar region; M54.16 Radiculopathy, lumbar region; J45.909 Unspecified asthma, uncomplicated; I10 Essential (primary) hypertension; E11.9 Type 2 diabetes mellitus without complications; E66.9 Obesity, unspecified; Z83.3 Family history of diabetes mellitus; Z82.49 Family history of ischemic heart disease and other diseases of the circulatory system; Z82.61 Family history of arthritis

== ENCOUNTER → 2017-04-15 | Outpatient (CLI) | payer BC ==
[~2017-04-15] MED LIST changes: -DIPH-416 PO; -IBUP-1050 PO; -IBUP1CAP9 PO; +RXC5 PO
--- NOTE | 2017-04-15 15:15 | DIAGNOSTIC IMAGING REPORT ---
ULTRASOUND RIGHT LOWER EXTREMITY VENOUS CLINICAL HISTORY: Right leg pain. COMPARISON STUDY: No priors. TECHNIQUE: Real-time, grayscale, and color Doppler sonography of the deep veins of the right lower extremity was performed from the inguinal crease to the calf. Compression and augmentation were utilized. FINDINGS: There is no sonographic evidence of deep venous thrombosis identified in the right lower extremity. The common femoral, superficial femoral, and popliteal veins are patent and normally compressible. The greater saphenous vein and the profunda femoris vein at the junction with the common femoral vein are clear. The visualized calf veins are patent. IMPRESSION: There is no sonographic evidence of deep venous thrombosis identified in the right lower extremity. Electronically signed by: Mauro Negrete M.D. 04/15/2017 3:14 PM Dictated Date/Time: 04/15/2017 3:14 PM
== END | disposition home or self-care (01) ==
LOC: C.ULTR 14:47
PROVIDERS: ATTEND Orthopaedic Surgery Orthopaedic Surgery of the Spine
DX: M79.604 Pain in right leg (principal)